=== PATIENT | female | born 1995 | race American Indian/Alaskan Native ===

== ENCOUNTER 2017-01-07 13:13 | Emergency (ER) | payer OTHER ==
[2017-01-07 13:36] VITALS: BP 102/68
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
== END 2017-01-07 16:41 | disposition home or self-care (01) ==
LOC: ED 13:13
DX: R51 Headache (principal); V53.6XXA Passenger in pick-up truck or van injured in collision with car, pick-up truck or van in traffic accident, initial encounter; Y93.9 Activity, unspecified; Y99.9 Unspecified external cause status; Y92.410 Unspecified street and highway as the place of occurrence of the external cause
CPT/HCPCS: 99282